=== PATIENT | female | born 1945 | race Caucasian/White ===

== ENCOUNTER 2016-05-21 20:39 | Emergency (ER) | payer OTHER ==
[2016-05-21] MEDS ORDERED: fentaNYL 100 MCG/2 ML INJ ONE (21:41)
[2016-05-21] MEDS ORDERED: fentaNYL 100 MCG/2 ML INJ IVP ONE (21:46)
[2016-05-21] MEDS ORDERED: HYDROmorphONE/DILAUDID 1 MG/ML SYR IVP ONE (22:08)
[2016-05-21] MEDS ORDERED: ONDANSETRON 4 MG/2 ML VIAL ONE (23:47)
[2016-05-21] MEDS ORDERED: ONDANSETRON 4 MG/2 ML VIAL IVP ONE (23:50)
--- NOTE | 2016-05-22 00:06 | EDPHY ---
H & P Stated Complaint: Fall/Left Arm Pain Time Seen by Provider: 05/21/16 21:59 HPI/ROS: Chief complaint: Left shoulder pain HPI: 71-year-old woman was holding hurts in her bed right foot became entangled in the electric blanket cord. She fell backwards striking her left shoulder on the dresser. She did not hit her head. She had no loss of consciousness. She is complaining of left shoulder pain. No chest pain. No shortness of breath. No abdominal pain. No numbness or tingling. No headache. No nausea or vomiting. ROS: 10 point Review of Systems is negative except as noted in the HPI. Physical exam: Gen: Awake, Alert, Airway Intact HEENT: Head: Atraumatic Eyes: PERRLA, EOMI Nose: No epistaxis Mouth: Normal dentition, Airway patent Face: No deformity Neck: non-tender, no stepoff, Full ROM without pain Chest: non-tender, lungs CTA Heart: normal heart tones Abd: soft, non-tender, atraumatic Pelvis: non-tender, stable to AP and Lateral compression Back: atraumatic, no midline tenderness Ext: She has tenderness in deformity in the proximal left humerus. Decreased range of motion of her arm secondary to pain. Some mild elbow tenderness an hand tenderness. There is no contusions. There are no abrasions or lacerations., full ROM Skin: no rash Neuro: CN II-XII intact, Strength 5/5 in all extremities, sensation intact in all extremities - Personal History Current Tetanus/Diphtheria Vaccine: Yes Current Tetanus Diphtheria and Acellular Pertussis (TDAP): Yes - Medical/Surgical History Hx Asthma: No Hx Chronic Respiratory Disease: No Hx Diabetes: No Hx Cardiac Disease: No Hx Renal Disease: No Hx Cirrhosis: No Hx Alcoholism: No Hx HIV/AIDS: No Hx Splenectomy or Spleen Trauma: No Other PMH: Fibromyalgia. Hand Surgeries. Non Hodgelins Lymphoma- 2008. Osteoarthritis. Sciatica. IBS. Graves - Social History Smoking Status: Never smoked Constitutional: Initial Vital Signs Temperature (C) 36.4 C 05/21/16 20:49 Heart Rate 88 05/21/16 20:49 Respiratory Rate 18 05/21/16 20:49 Blood Pressure 155/87 H 05/21/16 20:49 O2 Sat (%) 93 05/21/16 20:49 O2 Delivery Mode Room Air Allergies/Adverse Reactions: aspirin [Aspirin] Allergy (Verified 04/26/12 09:28) NAUSEA gabapentin Allergy (Verified 01/08/15 09:14) hydrocodone Allergy (Verified 01/08/15 09:14) Other-Enter Comments levofloxacin Allergy (Verified 01/08/15 09:14) metronidazole Allergy (Verified 01/08/15 09:14) morphine [Morphine] Allergy (Verified 04/26/12 09:28) Itching procaine HCl [From Novocain] Allergy (Verified 01/08/15 09:14) Vubadds-[id number]-[id number] Reductase Inhibitor Allergy (Verified 01/08/15 09:14) Other-Enter Comments Sulfa (Sulfonamide Antibiotics) Allergy (Verified 01/08/15 09:14) tetracycline [Tetracycline] Allergy (Verified 04/26/12 09:28) tramadol [Tramadol] Allergy (Verified 04/26/12 09:28) Home Medications: Medication Instructions Recorded Advil 01/08/15 Centrum Silver Tablet 01/08/15 Citracal + D 01/08/15 Imflamma-Less 01/08/15 Lisinopril 01/08/15 Lutein 01/08/15 METHIMAZOLE 01/08/15 Probiotic 01/08/15 Stool Softener 01/08/15 Vitamin D3 (OTC) 01/08/15 Zetia 01/08/15 Ondansetron Odt [Zofran Odt 4 mg 4 mg PO Q4 PRN #10 tab 05/22/16 (*)] oxyCODONE/APAP 5/325 [Percocet 1 - 2 tab PO Q4H PRN #10 tab 05/22/16 5/325 (*)] Medical Decision Making - Diagnostics Imaging: Left shoulder x-ray reveals a humeral head fracture. Left L1 hand are negative for acute bony injury. ED Course/Re-evaluation: 71-year-old with left proximal humerus fracture. She is placed in a shoulder immobilizer with improvement in her pain. She has gotten IV pain medication here and is tolerating this well. She is up and ambulating with some assistance but is moving independently. I had long conversation with her . Plan will be for discharge to home. She is always welcome to return if she is unable to care for her activities of daily living but she says she wants to try to go home. She has been referred orthopedic follow-up but she does have an orthopedist that she would like to call as well. I told her that this is fine and she can follow up with whomever she chooses. She I have encouraged her return for any concerns. - Data Points Medications Given: Discontinued Medications Fentanyl (Sublimaze) 50 mcg IVP EDNOW ONE Stop: 05/21/16 21:47 Last Admin: 05/21/16 21:47 Dose: 50 mcg Hydromorphone HCl (Dilaudid) 0.5 mg IVP EDNOW ONE Stop: 05/21/16 22:09 Last Admin: 05/21/16 23:14 Dose: 0.5 mg Ondansetron HCl (Zofran) 4 mg IVP EDNOW ONE Stop: 05/21/16 23:51 Last Admin: 05/21/16 23:52 Dose: 4 mg Ondansetron HCl (Zofran Odt 4 Mg Prepack#2) 1 btl TAKEHOME EDNOW ONE Stop: 05/22/16 00:23 Last Admin: 05/22/16 00:26 Dose: 1 btl Oxycodone/Acetaminophen (Percocet 5/325mg Prepack#4) 1 btl TAKEHOME EDNOW ONE Stop: 05/22/16 00:23 Last Admin: 05/22/16 00:26 Dose: 1 btl Departure - Departure Disposition: Home, Routine, Self-Care Clinical Impression: Humerus surgical neck fracture Condition: Good Instructions: Proximal Humerus Fracture (ED) Additional Instructions: Keep your shoulder in the sling at all times. Follow up with Orthopedic surgery in the next 2-3 days. Return to the emergency depart for increasing pain, shortness of breath, numbness, tingling, or any concerns. Referrals: Caroline Perez MD [Primary Care Provider] - As per Instructions Jude Navarro MD [Medical Doctor] - As per Instructions Prescriptions: Ondansetron Odt [Zofran Odt 4 mg (*)] 4 mg PO Q4 PRN #10 tab PRN Reason: nausea oxyCODONE/APAP 5/325 [Percocet 5/325 (*)] 1 - 2 tab PO Q4H PRN #10 tab PRN Reason: Pain, Severe
[2016-05-22] MEDS ORDERED: OXYCODONE/APAP 5/325MG PREPACK#4 BTL TAKEHOME ONE ×2 (00:22→00:23)
[2016-05-22] MEDS ORDERED: ONDANSETRON 4MG PREPACK#2 BTL TAKEHOME ONE ×2 (00:22)
[2016-05-22 00:40] VITALS: BP 145/81; PULSE 85; RESP 16; TEMP 98.2; O2SAT 95
== END 2016-05-22 00:39 | disposition home or self-care (01) ==
LOC: EDUNIT#
DX: S42.212A Unspecified displaced fracture of surgical neck of left humerus, initial encounter for closed fracture (principal); Z85.72 Personal history of non-Hodgkin lymphomas; W01.198A Fall on same level from slipping, tripping and stumbling with subsequent striking against other object, initial encounter; Y93.89 Activity, other specified
CPT/HCPCS: 73030; 73080; 73130; 96374; 96375; 99284; J1170; J2405; J3010

== ENCOUNTER → 2016-12-12 | Outpatient (CLI) | payer OTHER | LOC: CIMAGING 11:20 | PROVIDERS: ATTEND Family Medicine | DX: R06.02 Shortness of breath (principal); R53.83 Other fatigue; R68.89 Other general symptoms and signs | CPT/HCPCS: 71020-PO; 80048-PO; 84443-PO; 85025-PO ==

== ENCOUNTER → 2016-12-15 | Outpatient (CLI) | payer OTHER | LOC: FIMAGING 09:35 | PROVIDERS: ATTEND Family Medicine | DX: Z12.31 Encounter for screening mammogram for malignant neoplasm of breast (principal) | CPT/HCPCS: G0202 ==

== ENCOUNTER → 2017-01-16 | Outpatient (CLI) | payer OTHER | LOC: BHFA 12:45 | PROVIDERS: ATTEND Physician Assistant Medical | DX: R06.02 Shortness of breath (principal); F41.9 Anxiety disorder, unspecified; M79.7 Fibromyalgia; E78.5 Hyperlipidemia, unspecified; K21.9 Gastro-esophageal reflux disease without esophagitis; C85.80 Other specified types of non-Hodgkin lymphoma, unspecified site ==

== ENCOUNTER → 2017-03-16 | Outpatient (CLI) | payer OTHER | LOC: BHCLAF 10:00 | PROVIDERS: ATTEND Internal Medicine | DX: R06.02 Shortness of breath (principal) | CPT/HCPCS: 93306-PO ==

== ENCOUNTER → 2017-04-08 | Outpatient (CLI) | payer OTHER | LOC: BHFA 10:00 | PROVIDERS: ATTEND Internal Medicine Cardiovascular Disease | DX: R06.02 Shortness of breath (principal) ==

== ENCOUNTER → 2017-05-09 | Outpatient (CLI) | payer OTHER | LOC: CIMAGING 11:13 | PROVIDERS: ATTEND Family Medicine | DX: R05 Cough (principal); R06.2 Wheezing; J98.4 Other disorders of lung | CPT/HCPCS: 71046-PO ==

== ENCOUNTER → 2017-05-20 | Outpatient (CLI) | payer OTHER | LOC: BMCIMAGING 09:39 | PROVIDERS: ATTEND Orthopaedic Surgery | DX: M17.12 Unilateral primary osteoarthritis, left knee (principal); M16.0 Bilateral primary osteoarthritis of hip ==